=== PATIENT | female | born 1960 | race Native Hawaiian/Other Pacific Islander ===

== ENCOUNTER 2017-10-18 15:31 | Outpatient (CLI) | payer OTHER | END 2017-10-18 22:31 | disposition home or self-care (01) | LOC: LAB 15:31 | DX: R07.89 Other chest pain (principal) | CPT/HCPCS: 84484 ==

== ENCOUNTER 2020-12-26 10:46 | Emergency (ER) | payer BC ==
[~2020-12-26] VITALS: Ht 172.7 cm; Wt 112.5 kg
[2020-12-26 11:00] VITALS: TEMP 99
[2020-12-26 11:30] LABS: PLATELET COUNT 448 K/uL (152-353)
[2020-12-26 11:35] LABS: POTASSIUM 4.1 mmol/L (3.6-5.2); SODIUM 143 mmol/L (136-145)
[2020-12-26 11:43] LABS: PARTIAL THROMBOPLASTIN TIME 23.3 SECONDS (24.5-33.6)
[2020-12-26 15:06] VITALS: BP 156/68
== END 2020-12-26 15:06 | disposition short-term general hospital (02) ==
LOC: ED 10:46
PROVIDERS: Family Medicine
DX: T20.09XA Burn of unspecified degree of multiple sites of head, face, and neck, initial encounter (principal); T20.07XA Burn of unspecified degree of neck, initial encounter; I10 Essential (primary) hypertension; T31.0 Burns involving less than 10% of body surface; X03.0XXA Exposure to flames in controlled fire, not in building or structure, initial encounter; Y92.89 Other specified places as the place of occurrence of the external cause
CPT/HCPCS: 36415; 80053; 82550; 84484; 85027; 85610; 85730; 90471; 90715; 93005; 96360; 96361; 96372; 96374; 96375; 96376; 99284; J2270; J3490; J7040; J7120

== ENCOUNTER 2021-02-23 09:20 | Outpatient (CLI) | payer BC | END 2021-02-23 19:35 | disposition home or self-care (01) | LOC: RAD 09:20 | PROVIDERS: ATTEND Nurse Practitioner Family | DX: R31.9 Hematuria, unspecified (principal) ==

== ENCOUNTER 2021-05-12 07:55 | Outpatient (CLI) | payer BC | END 2021-05-12 20:51 | disposition home or self-care (01) | LOC: CT 07:55 | PROVIDERS: ATTEND Internal Medicine | DX: R10.11 Right upper quadrant pain (principal); R19.7 Diarrhea, unspecified | CPT/HCPCS: 36415; 82565; 84520; Q9963 ==

== ENCOUNTER 2021-07-30 13:12 | Outpatient (CLI) | payer BC | END 2021-07-30 19:38 | disposition home or self-care (01) | LOC: RAD 13:12 | PROVIDERS: ATTEND Nurse Practitioner Family | DX: R10.9 Unspecified abdominal pain (principal) ==

== ENCOUNTER 2022-07-26 08:20 | Outpatient (CLI) | payer OTHER | END 2022-07-26 19:25 | disposition home or self-care (01) | LOC: RAD 08:20 | PROVIDERS: ATTEND Registered Nurse | DX: Z13.820 Encounter for screening for osteoporosis (principal); N95.8 Other specified menopausal and perimenopausal disorders ==

== ENCOUNTER 2022-10-05 09:18 | Outpatient (CLI) | payer OTHER | END 2022-10-05 19:01 | disposition home or self-care (01) | LOC: RAD 09:18 | PROVIDERS: ATTEND Registered Nurse | DX: M25.511 Pain in right shoulder (principal) ==